=== PATIENT | female | born 1995 | race Caucasian/White ===

== ENCOUNTER 2024-01-18 16:51 | Emergency (ER) | payer OTHER, SELFPAY ==
[2024-01-18 16:53] VITALS: BP 118/75; PULSE 94; RESP 18; TEMP 36.1; O2SAT 97; BMI 34.5
[2024-01-18 18:52] VITALS: BP 108/70; PULSE 84; RESP 17; O2SAT 97
[2024-01-18] MEDS: Ondansetron 4 MG/2 ML Vial IV (19:51)
[2024-01-18] MEDS: Morphine 4 MG/ML Syringe IV (19:51)
[2024-01-18 20:00] VITALS: BP 108/73; PULSE 85; RESP 16; O2SAT 95
[2024-01-18] MEDS: Ketorolac 15 MG/ML Vial IV (21:03)
--- NOTE | 2024-01-18 21:16 | EDS_ITS ---
HPI History of Present Illness Chief Complaint: Other, Pain/Inj Detail of Chief Complaint: Atraumatic posterior neck pain after yawning Informant: patient Onset/Context/Timing Onset: Days Context: Sudden Onset Timing: Continuous Quality: Pain and spasm posterior neck near the occiput Location: Documented under quality Current Severity: Moderate Maximum Severity: Severe Worsened by: Movement Relieved by: Nothing. Patient is only taken Tylenol since she is Associated Symptoms Associated Symptoms: No associated symptoms Narrative Narrative: Patient is a 28-year-old G2, P1 female who is 28 weeks gestation who presents with posterior neck pain near the occiput that started after she yawned. She has limited range of motion. She denies paresthesia, anesthesia medics. She denies double vision blurred vision loss of vision. [place] ringing in ears or decreased hearing. She does complain of pain in the occiput area. She denies nausea or vomiting. She denies problems with coordination or balance. Prior similar symptoms: No Recent Illness/Hospitalization: No PFSH PFSH Medical History no medical history Allergy/AdvReac Type Severity Reaction Status Date / Time diphenhydramine (From Allergy Mild Other Verified 01/18/24 16:56 Benadryl) Social History (Updated 01/18/24 @ 21:[address] Marek Watson MD) household members: spouse and children Smoking Status: Former smoker ROS ROS ED Constitutional Constitutional ED: Denies chills, fever(s), subjective, sweats or weight loss Eyes Eyes: Denies blurry vision, change in vision or diplopia ENT ENT ED: Denies ear pain, rhinorrhea or sore throat Cardiovascular Cardiovascular: Denies chest pain Respiratory/Chest Respiratory/Chest: Denies cough or dyspnea Gastrointestinal Gastrointestinal: Denies nausea or vomiting Musculoskeletal Musculoskeletal: Reports neck pain; Denies arthralgias, back pain or myalgias Integumentary Denies rash Neurologic Neurologic: Reports headache(s); Denies paresthesias or weakness Endocrine Endocrinology: Denies cold intolerance or heat intolerance Allergic/Immunologic Allergic/Immunologic ED: Denies mouth swelling or tongue swelling EXAM Physical Exam Const Vital Signs: 01/18/24 16:53 01/18/24 18:52 01/18/24 19:54 Temperature 97 F L Temperature Source Temporal Pulse Rate 94 84 Respiratory Rate 18 17 Respiratory Effort Normal Respiratory Pattern Normal Blood Pressure 118/75 108/70 Blood Pressure Mean 89 82 Pulse Ox 97 97 Oxygen Delivery Method Room Air Room Air 01/18/24 20:00 Temperature Temperature Source Pulse Rate 85 Respiratory Rate 16 Respiratory Effort Respiratory Pattern Blood Pressure 108/73 Blood Pressure Mean 84 Pulse Ox 95 Oxygen Delivery Method Room Air Positive well nourished and well developed Constitutional Narrative: Vital signs are unremarkable. Patient appears uncomfortable. General Appearance ED: well developed; Negative for cyanotic, diaphoretic, NAD or pallor HEENT Reports moist mucous membranes HEENT Narrative: Head is atraumatic normocephalic. There is no trigger point. There is no skin or scalp lesions noted. Ears normal. TMs normal. Nares patent. Posterior pharynx is normal. Eyes PERRL and EOMs intact bilaterally General Eye ED: Negative for pale conjunctiva or scleral icterus Neck no lymphadenopathy, supple and no JVD Neck Narrative: Patient is able to flex and touch her chin to her chest. She able to rotate to the right and left but she complains of discomfort. She has pain with action. She also has increased pain with extension of her neck. There is pain outpatient posteriorly. There is no lesions noted. There is no warmth induration etc. There is no post occipital lymphadenopathy. Resp normal respiratory effort Cardio regular rate and regular rhythm Extremity normal to inspection Extremity Narrative: Axillary, median, radial and ulnar function intact. General Extremety ED: Negative for edema or tenderness General Extremity: Negative for edema Neuro oriented x3, CN's II-XII intact bilaterally and no sensory deficits noted Neuro Narrative: Bicep, tricep and brachialis is 1+ to 2+ and symmetric. There is no clonus or Babinski sign noted. Sensorium / Orientation: alert Motor Exam: strength 5/5 throughout Psych Mood & Affect: depressed Skin no rashes or lesions noted, no wounds and skin turgor normal General Skin Exam: elasticity normal; Negative for jaundice or pallor MDM MDM MDM Narrative Medical decision making narrative: Patient with muscular pain. This may represent torticollis. Doubt any cervical pathology. Because patient is she was initially treated with morphine. She had total resolution. She was asking to go prior to completing her discharge instructions she had severe pain. After talking with her and telling her this most likely represents torticollis she was willing to allow the nurse to give her another dose of pain medicine. She was reassessed for second time at 2117. Patient has improvement but not resolution. Patient was instructed apply ice 6-10 times a day and she was discharged home with appropriate home- going instructions. Discharge Plan Triage Chief Complaint: Other, Pain/Inj ED Provider: Marek Watson Dx/Rx/DC Orders Clinical Impression: Acute torticollis, Second trimester Instructions: Torticollis (Wry Neck) Primary Care Provider: Hospital,OR Referrals: Hospital,OR [Primary Care Provider] - 3-5 Days if not improving Activity Restrictions/Additional Instructions: 1. Apply ice to the back your neck 6-10 times a day Print Language: Tamazight Disposition Disposition: Home, Self Care
[2024-01-18 21:31] VITALS: BP 114/79; PULSE 61; RESP 18; TEMP 35.9; O2SAT 97
== END 2024-01-18 21:34 | disposition home or self-care (01) ==
PROVIDERS: Emergency Provider Emergency Medicine; Visit Provider Emergency Medicine
DX: O99.891 Other specified diseases and conditions complicating pregnancy (principal); M43.6 Torticollis; Z87.891 Personal history of nicotine dependence; Z3A.28 28 weeks gestation of pregnancy
CPT/HCPCS: 96374; 96375; 99282; A4216; J2405

== ENCOUNTER 2024-04-12 11:02 | Inpatient (IN) | payer OTHER, SELFPAY ==
[2024-04-12] VITALS (26 sets, daily range): BP systolic 82–154; BP diastolic 52–85; PULSE 48–97; RESP 10–19; TEMP 36.1–36.6; O2SAT 97–100; BMI 37.8
[2024-04-12 10:49] LABS: ROM Internal Control Test YES-OK TO RESULT pt. (Internal QC)
[2024-04-12 10:50] LABS: ROM Patient Test POSITIVE (Negative)
[2024-04-12 10:51] LABS: Record Kit Lot#, ROM+ K1660
[2024-04-12] MEDS: Lactated Ringers 1,000 ML 200 ML IV (11:50)
[2024-04-12] MEDS: Oxytocin 15 Units/NS 250ml 15 UNITS/250 ML IV.SOLN 2 UNITS IV (11:54)
[2024-04-12 12:58] LABS: Absolute Lymphocyte Count 2.12 X10^3/uL (0.83-4.51); Absolute Neutrophil Count 6.7 X10^3/uL (2.0-7.7); Basophil# 0.04 X10^3/uL; Basophil% 0.4 % (0-1); Eosinophil# 0.08 X10^3/uL; Eosinophils% 0.8 % (0-5); Hemoglobin 11.8 g/dL (12.0-15.0); Lymphocyte # 2.12 X10^3/ul (0.83-4.51); Lymphocyte % 22.4 % (19-41); Mean Corp Hgb Conc 32.8 g/dL (32-36); Mean Corpuscular Hgb 29.6 pg (27.0-32.0); Mean Corpuscular Volume 90.5 fL (81-99); Mean Platelet Vol. 11.2 fl (6.2-12.0); Monocyte# 0.48 X10^3/uL; Monocyte% 5.1 % (0-10); NRBC Flagged by Analyzer 0 % (0-5); Neutrophil # 6.69 X10^3/uL (2.7-7.7); Neutrophil % 70.8 % (47-70); Platelet Count 230 K/mm3 (150-450); RBC Distribution Width CV 12.9 % (11.6-14.6); RBC Distribution Width SD 42.1 fl (35.1-43.9); Red Blood Count 3.98 M/mm3 (4.2-5.4); White Blood Count 9.5 K/mm3 (4.4-11.0)
[2024-04-12 13:33] LABS: Syphilis Antibodies Non-reactive
--- NOTE | 2024-04-12 14:20 | PCM.HP.OB ---
HPI - General General Date of Admission: 04/12/24 HPI Narrative BRIGIDO PICKETT, is a 28 F @ 40.1 weeks who presents c/o SROM PFSH PFSH Medical History (Updated 04/12/24 @ 14:[address] Cindy Mcghee MD) Chlamydia infection affecting Depression Anxiety Allergy/AdvReac Type Severity Reaction Status Date / Time diphenhydramine (From Allergy Mild Other Verified 04/12/24 10:31 Benadryl) Surgical History (Updated 04/12/24 @ 12:31 by Toshia Paulino) History of surgery Social History (Updated 01/18/24 @ 21:[address] Marek Watson MD) household members: spouse and children Smoking Status: Former smoker History Elective abortions Hx Para 1 Spontaneous abortions Hx # Term Pregnancies Ectopic pregnancies Hx # Pregnancies Multiple births # of living children NST FHR Rate Baby A Baseline: 130 Variability:: Moderate Accelerations:: 15 x 15 Decelerations:: None NST Reactive:: Yes FHR Category:: Category I Uterine Activity:: irregular Vital Signs Vital Signs Vital Signs: 04/12/24 10:43 04/12/24 10:43 04/12/24 10:43 Temperature Temperature Source Tympanic Pulse Rate Respiratory Rate 15 Blood Pressure BP Systolic BP Diastolic Pulse Ox 98 04/12/24 10:43 04/12/24 10:44 04/12/24 10:44 Temperature 97.1 F L Temperature Source Pulse Rate 77 Respiratory Rate Blood Pressure 115/74 BP Systolic 115 BP Diastolic 74 Pulse Ox 04/12/24 12:58 04/12/24 12:58 04/12/24 13:00 Temperature Temperature Source Pulse Rate 73 Respiratory Rate Blood Pressure 154/85 H 126/60 H BP Systolic 154 126 BP Diastolic 85 60 Pulse Ox 04/12/24 13:00 04/12/24 13:00 04/12/24 13:00 Temperature Temperature Source Pulse Rate 71 67 Respiratory Rate 16 Blood Pressure BP Systolic BP Diastolic Pulse Ox 04/12/24 13:00 04/12/24 13:00 04/12/24 13:02 Temperature 97.4 F L Temperature Source Pulse Rate 68 Respiratory Rate Blood Pressure BP Systolic BP Diastolic Pulse Ox 99 04/12/24 13:02 04/12/24 13:07 04/12/24 13:07 Temperature Temperature Source Pulse Rate 71 Respiratory Rate Blood Pressure BP Systolic BP Diastolic Pulse Ox 99 98 04/12/24 13:47 04/12/24 13:47 04/12/24 13:47 Temperature Temperature Source Temporal Pulse Rate 70 Respiratory Rate 16 Blood Pressure BP Systolic BP Diastolic Pulse Ox 04/12/24 13:47 04/12/24 13:47 04/12/24 13:49 Temperature 97.6 F L Temperature Source Pulse Rate Respiratory Rate Blood Pressure 119/79 BP Systolic 119 BP Diastolic 79 Pulse Ox 100 04/12/24 13:49 04/12/24 13:49 Temperature Temperature Source Pulse Rate 58 L Respiratory Rate Blood Pressure BP Systolic BP Diastolic Pulse Ox 100 Weight Weight: 99.79 kg Body Mass Index (BMI) 37.8 Labs Labs Labs: Blood Type O POSITIVE Antibody Screen NEGATIVE Hct 36.0 % (37-47) L Hgb 11.8 g/dL (12.0-15.0) L Syphilis Total Ab Non-reactive Assessment & Plan (1) Obesity affecting : (2) Depression: PLAN: Plan [facility] FHR/TOCO Monitor VS SROM + , PPROM at 1cm After further review of patients chart and discussion on phone with patient- pt was counseled in office by Nathaniel dozier and Dr. Kaplan about Elective Primary CS and Bilateral Salpingectomy. Pt was being scheduled in [place] for this procedure. Pt would like to stop LABOR induction at this time and Proceed with Elective primary cs. She has been counseled by myself and previously by Dr. Kaplan regarding risks benefits and alternatives. Pt understands that salpingectomy is permanent and risk of regret was previously discussed. PRE OP abx - ANCEF. Plan for 4pm cs
[2024-04-12] MEDS: Lactated Ringers 1,000 ML 150 ML IV (15:00)
[2024-04-12] MEDS: Acetaminophen 500 MG Tablet 1000 MG PO (17:14)
[2024-04-12 17:37] LABS: Bedside Glucose 73 mg/dL (74-106)
[2024-04-12] MEDS: Sodium Citrate/Citric Acid 30 ML UDC PO (18:08)
[2024-04-12] MEDS: Cefazolin 2 GM in 0.9% Normal Saline (100mL Bag) 100 ML IV (18:20)
[2024-04-12] MEDS: Azithromycin 500 MG in Dextrose 5%-Water (250mL Bag) 250 ML 250 MG IV (18:40)
--- NOTE | 2024-04-12 19:23 | OP.PCM_ITS ---
Details Operative Information Date of Procedure: 04/12/24 Pre-Operative Diagnosis: Elective Primary c/s, desires sterilization, Obesity in , PPROM, 40 weeks gestation Post-Operative Diagnosis: same, live female infant Indications Narrative: pt was counseled in the office on separate occasions- had asked for primary cs and tubal sterilization. Pt on 04/11/24 had signed consent and was being set up for C/S at [facility]. Arrived at [facility] 04/12/24 with SROM- PPROM at 1cm , after discussion with patient and shared decision making patient was electing to proceed with primary c/s and bilateral salpingectomy. Classification: ABBY Procedure Type: low transverse (with bilateral salpingectomy ) computer graphic artist #1: Je Puente Type of Anesthesia: Spinal Antibiotic Given: Ancef 2 grams IV x1 and Zithromax 500 mg/5 mL X1 Drain: Gale[place] to straight drain Estimated Blood Loss: 600 Fluids Replaced: 650 Procedure Start Time: 18:44 Procedure Stop Time: 19:12 Time of Delivery: 18:47 Findings Description of Procedure: After informed consent was obtained the patient was taken the operating room she was given spinal anesthesia. She was then placed in the supine position. She was prepped and draped in the normal sterile fashion. Anesthesia was found to be adequate. At this time a Pfannenstiel skin incision was made with a knife was carried down to the underlying layer of the fascia. The fascial incision was then extended laterally using cooper traction. Attention was then turned to the superior aspect of the fascial edge was grasped with 2 straight Shannan clamps tented up and the rectus muscle dissected off sharply. Rectus muscles were then in the midline bluntly and peritoneum was entered bluntly. Gentle opposing traction was placed. At this time the vesicouterine peritoneum was identified. Scalpel was used to make a uterine incision in a low transverse fashion. The uterus was then entered bluntly gentle opposing traction was placed to extend this incision. 's head was brought to the uterine incision, loose nuchal x 1 noted and reduced, rest of was delivered atraumatically. was vigorous at delivery and delayed cord clamping performed. Cord was clamped and cut was handed to the waiting nursery team. The Placenta was removed from the uterus. The uterus was then removed from the abdominal cavity. The uterus was cleared of all clots and debris using a lap. At this time the uterine incision was reapproximated using #1 Vicryl in a running locked fashion. Hemostasis was appreciated. Posterior cul-de-sac was then cleared of all clots and debris. At this time the fallopian tubes were grasped and avascular with the [place]'s and the LigaSure was used to coagulate and ligate along the mesosalpinx to remove the tube in its entirety. Small paratubal cyst was noted on the left. Otherwise unremarkable. Uterus was placed back in the abdominal cavity. Gutters were cleared of all clots and debris. Uterine incision was reevaluated and noted to be of excellent hemostasis. At this time the peritoneum was grasped with Kellys reapproximated using #2 Vicryl suture in a running fashion. Fascia was then reapproximated using #1 PDS in a running fashion. Subcu layer was irrigated with NS, reapproximated with #2 0 plain gut suture in an interrupted fashion. Subcu layer was closed using 4-0 Viryl in a subcu fashion. Dry sterile dressing was applied. Instrument lap needle count correct ?2. Anticipated normal postoperative course. Presentation: Positive for Vertex Amniotic Membrane Rupture Type: Spontaneous Amniotic Fluid Description: Clear Placental Delivery Description: Expressed Placenta Disposition: [facility] Specimen(s) Sent to Pathology: Bilateral fallopian tubes Cord Vessel Description: 3 Vessels Cord Entanglement: Around neck x 1, loose Nuchal Cord Compression: Without compression Infant A Gender: Female (1 minute): 8 (5 minute): 9 Delayed Cord Clamping: Yes Complications Risks of Surgery Discussed w/Patient: Bleeding, Anesthesia Risks, Infection, Permanency, Failure Rate of 1 to 2%, Injury to surrounding structure(s) including bowel and bladder and Availability of other non-permanent control options Complications: none
--- NOTE | 2024-04-12 19:39 | FALS_PTH ---
PATIENT: BRIGIDO PICKETT LOC: [facility] U#:[id number] AGE/SX: 28/F ROOM: [facility] RE04/12/[address]: Dr. Cindy Mcghee, MDDOB: 1995 BED: 1 DIS: 04/14/2024 SPEC #: [id number] RECD: 04/12/24 19:47 STATUS: BRANDY LITO #: [id number] MADELEINE: 04/12/24 19:[address]: Cindy Mcghee DEPT: SURGICAL PATHOLOGY RECD BY: Jesenia Wheatley ENTERED: 04/13/24 10:19 SP TYPE: FALL TUBES NICHOLE DR: [facility] Tissues: Fallopian tube Procedures: Surgery Specimen Level II HEADER OPERATION: Tubal ligation PRE-OP DIAGNOSIS: Tubal during primary section TISSUE SUBMITTED: Bilateral fallopian tubes- suture on right MICROSCOPIC DIAGNOSIS Right fallopian tube, salpingectomy: No pathologic change. Left fallopian tube, salpingectomy: Benign paratubal cyst. AM: 04/14/2024 MICROSCOPIC DESCRIPTION Slides are reviewed. GROSS DESCRIPTION Received in fixative is one container labeled with the patient's name and designated bilateral fallopian tubes- suture on right. The specimen consists of bilateral fallopian tubes including fimbrial ends. Right fallopian tube measures 8.0cm in length and 0.7cm in diameter and left fallopian tube measures 6.0 cm in length and 0.7 cm in diameter. The left fallopian tube also shows a paratubal cyst measuring 2.0 x 1.5 x 1.5cm. The cyst is filled with clear fluid. Sections reveal unremarkable cut surfaces. Commercial Center Manager sections are submitted in two cassettes: 1- right fallopian tube, 2- left fallopian and paratubal cyst. / SJ: 04/13/2024 TC:5 CPT: 52915,34521
[2024-04-12] MEDS: Oxytocin 15 Units/NS 250ml 15 UNITS/250 ML IV.SOLN 83 UNITS IV (20:08)
[2024-04-12] MEDS: Lactated Ringers 1,000 ML 999 ML IV (20:38)
[2024-04-12] MEDS: Ketorolac 30 MG/ML Syringe IV (20:54)
[2024-04-12 21:13] LABS: Bedside Glucose 97 mg/dL (74-106)
[2024-04-12] MEDS: Lactated Ringers 1,000 ML 100 ML IV (21:57)
[2024-04-12 22:08] LABS: Pathology Specimen OB SEE PATHOLOGY REPORT
[2024-04-12] MEDS: Ondansetron 4 MG/2 ML Vial IV (22:33)
[2024-04-12 22:56] LABS: Absolute Lymphocyte Count 1.89 X10^3/uL (0.83-4.51); Absolute Neutrophil Count 9.8 X10^3/uL (2.0-7.7); Basophil# 0.07 X10^3/uL; Basophil% 0.6 % (0-1); Eosinophil# 0.07 X10^3/uL; Eosinophils% 0.6 % (0-5); Hematocrit 32.2 % (37-47); Hemoglobin 10.6 g/dL (12.0-15.0); Lymphocyte # 1.89 X10^3/ul (0.83-4.51); Mean Corp Hgb Conc 32.9 g/dL (32-36); Mean Corpuscular Hgb 30.1 pg (27.0-32.0); Mean Corpuscular Volume 91.5 fL (81-99); Mean Platelet Vol. 10.8 fl (6.2-12.0); Monocyte# 0.73 X10^3/uL; Monocyte% 5.8 % (0-10); NRBC Flagged by Analyzer 0 % (0-5); Neutrophil # 9.79 X10^3/uL (2.7-7.7); Neutrophil % 77.6 % (47-70); Platelet Count 207 K/mm3 (150-450); RBC Distribution Width CV 13.1 % (11.6-14.6); RBC Distribution Width SD 42.1 fl (35.1-43.9); Red Blood Count 3.52 M/mm3 (4.2-5.4); White Blood Count 12.6 K/mm3 (4.4-11.0)
[2024-04-13] VITALS (13 sets, daily range): BP systolic 91–108; BP diastolic 47–74; PULSE 45–88; RESP 16–24; TEMP 36–36.7; O2SAT 98–100
[2024-04-13] MEDS: Ketorolac 30 MG/ML Syringe IV ×3 (02:58→15:58)
--- NOTE | 2024-04-13 04:00 | NURSING ---
Dr Faye updated on patient vital signs. HR 40-50s consistently overnight with BP 91/61 patient resting in bed sleeping intermittently. Up to side of bed once denies feeling dizzy or lightheaded. Patient currently asymptomatic resting in bed. Order received to observe patient for 24 hours post duramorph instead of 12. Plan to call anesthesia if patient becomes symptomatic or change in vital signs.
[2024-04-13 05:33] LABS: Hematocrit 30.2 % (37-47); Mean Corp Hgb Conc 33.1 g/dL (32-36); Mean Corpuscular Hgb 30.3 pg (27.0-32.0); Mean Corpuscular Volume 91.5 fL (81-99); Mean Platelet Vol. 10.3 fl (6.2-12.0); Platelet Count 190 K/mm3 (150-450); RBC Distribution Width CV 13.1 % (11.6-14.6); RBC Distribution Width SD 42.4 fl (35.1-43.9); White Blood Count 10.7 K/mm3 (4.4-11.0)
[2024-04-13] MEDS: Acetaminophen 500 MG Tablet 1000 MG PO ×4 (06:05→23:52)
[2024-04-13 06:52] LABS: Bedside Glucose 86 mg/dL (74-106)
[2024-04-13] MEDS: Enoxaparin 40 MG/0.4 ML Syringe SC (08:10)
[2024-04-13] MEDS: 0.9% Saline Lock 10 ML Syringe IV ×3 (08:10→15:59)
[2024-04-13] MEDS: Senna/Docusate Sodium 1 Tablet PO (08:58)
--- NOTE | 2024-04-13 09:01 | PN.OBGYN_ITS ---
Subjective Subjective Patient seen at bedside. Denies headache, vision changes, SOB or CP. Ambulating and voiding without difficulty. Passing flatus. Lochia decreased. Objective Data Objective Data Vital Signs: Vital Signs Temp Pulse Resp BP Pulse Ox O2 Del Method 97.3 F L 52 L 16 91/61 100 Room Air 04/13/24 03:06 04/13/24 06:00 04/13/24 06:00 04/13/24 03:06 04/13/24 06:00 04/13/24 06:00 Oxygen Delivery Method Room Air Weight: 220 lb Body Mass Index (BMI) 37.8 Intake & Output: Intake and Output for Last 24 Hours 04/11/24 04/12/24 04/13/24 23:59 23:59 23:59 Intake Total 3211.53 / 3211.53 1000 / 1000 Output Total 1090 / 1090 800 / 800 Balance 2121.53 / 2121.53 200 / 200 Lab / Micro Data Attestation: I reviewed the patient's lab results. 04/13/24 05:25 Labs: Laboratory Results - last 24 hr 04/12/24 10:40: Vag Amniotic Fld Detect POSITIVE H 04/12/24 11:55: WBC 9.5, RBC 3.98 L, Hgb 11.8 L, Hct 36.0 L, MCV 90.5, MCH 29.6, MCHC 32.8, RDW Std Deviation 42.1, RDW Coeff of Maritza 12.9, Plt Count 230, MPV 11.2, Immature Gran % (Auto) 0.500, Neut % (Auto) 70.8 H, Lymph % (Auto) 22.4, [place] % (Auto) 5.1, Eos % (Auto) 0.8, Baso % (Auto) 0.4, Absolute Neuts (auto) 6.7, Absolute Lymphs (auto) 2.12, Nucleated RBC % 0, Syphilis Total Ab Non- reactive, Blood Type O POSITIVE, Antibody Screen NEGATIVE 04/12/24 17:17: POC Glucose 73 L 04/12/24 19:49: POC Glucose 97 04/12/24 22:46: WBC 12.6 H, RBC 3.52 L, Hgb 10.6 L, Hct 32.2 L, MCV 91.5, MCH 30.1, MCHC 32.9, RDW Std Deviation 42.1, RDW Coeff of [place]it[place] 13.1, Plt Count 207, MPV 10.8, Immature Gran % (Auto) 0.400, Neut % (Auto) 77.6 H, Lymph % (Auto) 15.0 L, [place] % (Auto) 5.8, Eos % (Auto) 0.6, Baso % (Auto) 0.6, Absolute Neuts (auto) 9.8 H, Absolute Lymphs (auto) 1.89, Nucleated RBC % 0 04/13/24 05:22: POC Glucose 86 04/13/24 05:25: WBC 10.7, RBC 3.30 L, Hgb 10.0 L, Hct 30.2 L, MCV 91.5, MCH 30.3, MCHC 33.1, RDW Std Deviation 42.4, RDW Coeff of [place]it[place] 13.1, Plt Count 190, MPV 10.3 ROS Eyes Eyes: Denies blurry vision, spots in vision or tunnel vision ENT HEENT: Denies dizziness or headache(s) Cardiovascular Cardiovascular: Reports systems reviewed and no addt'l complaints, except as documented, dizziness and dyspnea Respiratory/Chest Respiratory/Chest: Reports systems reviewed and no addt'l complaints, except as documented Gastrointestinal Gastrointestinal: Reports systems reviewed and no addt'l complaints, except as documented Genitourinary Genitourinary: Reports systems reviewed and no addt'l complaints, except as documented Neurologic Neurologic: Denies abnormal speech, dizziness, headache(s), syncope or vertigo Psychiatric Psychiatric: Reports systems reviewed and no addt'l complaints, except as documented Physical Exam Const alert and no apparent distress General Appearance: cooperative Orientation / Consciousness: awake, oriented to person and oriented to place Exam Limitations: no limitations HEENT normocephalic Eyes General Eye: normal appearance of both eyes Neck full ROM Chest Chest: symmetrical chest wall rise Resp normal respiratory effort, normal air movement and clear to auscultation bilaterally Auscultation: clear to auscultation bilaterally Cardio regular rate and regular rhythm GI normal to inspection, nondistended, normoactive bowel sounds Uterus Palpation: uterus fundus firm Extremity full ROM and no calf tenderness Skin no rashes or lesions noted Neuro oriented x3 Psych mental status grossly normal and activity/motor behavior normal Assessment & Plan (1) Obesity affecting : (2) Anxiety: (3) Depression: (4) Status post delivery: (5) Care and examination of lactating mother: PLAN: Plan POD 1 Repeat C/S Increase ambulation Pain control support Anticipate discharge home tomorrow
[2024-04-13] MEDS: Ibuprofen 600 MG Tablet PO (20:51)
[2024-04-14] MEDS: Ibuprofen 600 MG Tablet PO ×3 (03:28→15:19)
[2024-04-14 03:45] VITALS: BP 108/64; PULSE 65; RESP 16; TEMP 36.4; O2SAT 98
[2024-04-14] MEDS: SimETHICONE 80 MG Chewable Tablet PO (04:09)
[2024-04-14] MEDS: Acetaminophen 500 MG Tablet 1000 MG PO ×3 (06:31→18:27)
--- NOTE | 2024-04-14 07:23 | PCM.PN.CNM ---
Subjective Subjective Patient seen at bedside. Denies headache, vision changes, SOB or CP. Ambulating and voiding without difficulty. Passing flatus. Lochia decreased. infant with assistance. Objective Data Objective Data Vital Signs: Vital Signs Temp Pulse Resp BP Pulse Ox O2 Del Method 97.6 F L 65 16 108/64 98 Room Air 04/14/24 03:45 04/14/24 03:45 04/14/24 03:45 04/14/24 03:45 04/14/24 03:45 04/14/24 03:45 Oxygen Delivery Method Room Air Weight: 220 lb Body Mass Index (BMI) 37.8 Intake & Output: Intake and Output for Last 24 Hours 04/12/24 04/13/24 04/14/24 23:59 23:59 23:59 Intake Total 3211.53 / 3211.53 1000 / 1000 Output Total 1090 / 1090 1400 / 1400 Balance 2121.53 / 2121.53 -400 / -400 Lab / Micro Data Attestation: I reviewed the patient's lab results. 04/13/24 05:25 ROS Eyes Eyes: Denies blurry vision, spots in vision or tunnel vision ENT HEENT: Denies dizziness or headache(s) Cardiovascular Cardiovascular: Reports systems reviewed and no addt'l complaints, except as documented, dizziness and dyspnea Respiratory/Chest Respiratory/Chest: Reports systems reviewed and no addt'l complaints, except as documented Gastrointestinal Gastrointestinal: Reports systems reviewed and no addt'l complaints, except as documented Genitourinary Genitourinary: Reports systems reviewed and no addt'l complaints, except as documented Neurologic Neurologic: Denies abnormal speech, dizziness, headache(s), syncope or vertigo Psychiatric Psychiatric: Reports systems reviewed and no addt'l complaints, except as documented Physical Exam Const alert and no apparent distress General Appearance: cooperative Orientation / Consciousness: awake, oriented to person and oriented to place Exam Limitations: no limitations HEENT normocephalic Eyes General Eye: normal appearance of both eyes Neck full ROM Chest Chest: symmetrical chest wall rise Resp normal respiratory effort, normal air movement and clear to auscultation bilaterally Auscultation: clear to auscultation bilaterally Cardio regular rate and regular rhythm GI normal to inspection, nondistended, normoactive bowel sounds Uterus Palpation: uterus fundus firm Extremity full ROM and no calf tenderness Skin no rashes or lesions noted Neuro oriented x3 Psych mental status grossly normal and activity/motor behavior normal Assessment & Plan (1) Care and examination of lactating mother: (2) Status post delivery: (3) Anxiety: (4) Depression: PLAN: Plan POD 2 Primary C/S Pain control Increase ambulation support consultation Anticipate discharge home tomorrow
[2024-04-14 08:21] VITALS: BP 92/68; PULSE 65; RESP 16; TEMP 36.1; O2SAT 98
[2024-04-14] MEDS: Enoxaparin 40 MG/0.4 ML Syringe SC (08:27)
[2024-04-14] MEDS: Senna/Docusate Sodium 1 Tablet PO (09:40)
[2024-04-14 14:03] VITALS: BP 118/81; PULSE 63; RESP 16; TEMP 36.2; O2SAT 98
--- NOTE | 2024-04-14 14:03 | DS.PCM_ITS ---
Providers Date of Admission: 04/12/24 Primary Care Physician: [facility] Reason For Visit: PRIMARY Diagnosis Discharge Diagnosis (1) Care and examination of lactating mother: Status: Acute Code(s): Z39.1 - Encounter for care and examination of lactating mother (2) Status post delivery: Status: Acute Code(s): Z98.891 - History of uterine scar from previous surgery (3) Anxiety: Status: Acute Code(s): F41.9 - Anxiety disorder, unspecified (4) Depression: Status: Acute Code(s): F32.A - Depression, unspecified Medications at Discharge Home Medications acetaminophen 500 mg tablet (Acetaminophen Extra Strength) 1,000 mg (2 x 500 mg) PO Q6H PRN fever or pain 30 days #60 tabs 04/14/24 ferrous sulfate 325 mg (65 mg iron) tablet (FeroSul) 325 mg PO QODAY 30 days #15 tabs 04/14/24 ibuprofen 600 mg tablet 600 mg PO Q6H PRN Pain 30 days #60 TABLETS 04/14/24 oxycodone 5 mg tablet 5 mg PO Q8H PRN severe pain 7 days #10 TABLETS 04/14/24 Hospital Course Operations - (primary LTCS with bilateral salpingectomy) Procedures None Summary of Care Provided Minutes Spent on Discharge: 22 Hospital Course: 28-year-old 2 para 1 who presented on 04/12/2024 at 40 and 1 sevenths weeks gestation in labor who desired primary section and tubal sterilization. This was performed without difficulty. By postoperative day #2 she was ambulating, urinating tolerating regular diet without difficulty. was doing well and breast-feeding. Patient was discharged home with routine instructions and prescriptions and to follow-up in the office within 1 week and in 6 weeks or as needed. Weight / BMI Weight Weight: 99.79 kg Body Mass Index (BMI) 37.8 ABG / Lab / Microbiology Data 04/13/24 05:25 D/C Instructions Discharge Diet: No restrictions May resume sexual activity in: 4-6 weeks Lifting Restrictions: 20 pounds Additional Activity Instructions: Nothing in the vagina for 4-6 weeks. You may return to work/school in 6 weeks. Call your doctor if your incision/area has: Continuous Slow Oozing, Sudden Increased Bleeding, Increased Pain/ Swelling, Increased Redness and Foul Smelling Discharge Call your doctor if you observe: Fever of 101 or Higher and Using more than 1 pad per hour (for 2 hours) Suture Line Care: Avoid Pulling/Pushing and Avoid Pinching/Bending Cleanse incision/area with: Keep Dressing Clean & Dry Please Follow Up With: Cindy Mcghee MD When: Call to make an appointment for an incision check in 1-2 [phone]. You will need a post check in 6 weeks. Meaningful Use Info Meaningful Use Meaningful Use Diagnoses (Choose all that apply): None applicable Ischemic Stroke Statin Dosing Therapy Reference: STATIN DOSE THERAPY REFERENCE: * Patients > 75 years receive moderate or high dose statin therapy. * Patients 75 years or YOUNGER should receive HIGH intensity statin dose unless contraindicated. You will be required to document reason for non-treatment if statin daily dose does not meet guidelines. HIGH DOSE STATIN THERAPY DAILY Atorvastatin > than or = to 40 mg Rosuvastatin > than or = to 20 mg Amlodipine + Atorvastatin > than or = to 2.5/40 mg Ezetimibe + Simvastatin 10/80 mg Simvastatin 80mg Discharge Plan Admission Admit Date/Time: 04/12/24 11:02 Primary Reason for Your Visit: and tubal Attending Provider: Cindy Mcghee [facility] Care Provider: [facility] Discharge Orders/Prescriptions Prescriptions: New acetaminophen [Acetaminophen Extra Strength] 500 mg tablet 1,000 mg PO Q6H PRN (Reason: fever or pain) 30 Days Qty: 60 1RF ibuprofen 600 mg tablet 600 mg PO Q6H PRN (Reason: Pain) 30 Days Qty: 60 1RF oxycodone 5 mg tablet 5 mg PO Q8H PRN (Reason: severe pain) 7 Days Qty: 10 0RF ferrous sulfate [FeroSul] 325 mg (65 mg iron) tablet 325 mg PO QODAY 30 Days Qty: 15 0RF Referrals / Follow Up: [facility] [Primary Care Provider] - Disposition Disposition (needs filled in before D/C Order can be placed): Home, Self Care
--- NOTE | 2024-04-14 15:04 | CASEMGMT ---
Social Work Assessment Labor and Delivery Unit Patient Address: [id number] [id number] Date of Referral: 04/12/2024 Time of Referral: 9:00am Referred By: Dr. Mcghee Date of Intervention: 04/14/2024 Time of Intervention: 1100 Reason for Referral: SW completed chart review and acknowledges social work consult due to maternal mental health. SW presented and introduced self to mother of baby (OCTAVIO Cole). SW completed psychososcial assessment and asked MOB to to complete [place] Depression Scale. History obtained from: MOB, medical record Household composition: MOB reports to living with boyfriend (FOB) and son. MOB denies any concerns with housing. Patient's parent/guardian status: OCTAVIO states that her and father of baby (CHAVEZ Tyler) have been together for 4-5 years. This is second child for both MOB and FOB, no other children from previous relationships. MOB states that their other child is 3 year old boy. Medical History: OCTAVIO is 28 year old female who is 2, para 1 now 2 following scheduled . OCTAVIO received routine care during pregnacy with [facility]. OCTAVIO delivered baby on 04/12/2024 at 40 weeks gestation. Baby girl, Chioma, was born weighing 7 lbs 12 oz. with Apgars of 8 and 9 at one and five minutes of life. OCTAVIO is breast feeding and reports using lacatation consult to help with same. Baby will be followed by Dr. Shearer for pediatrics. Educational Status: OCTAVIO graduated high school and enlisted in the [place] [employer], attended some college classes but no degree. Intents to continue college education. FOB graduated high school. No concerns with reading, learning or comprehension. Financial Status: OCTAVIO is not employed at this time. Does have plans to pursue a job after the New Year. FOB works as a foundry metallurgist and is the primary financial support for the family. MOB did discuss being open to additional resources if available, given information provided for WIC. Infant Supplies: MOB reports to having all necessary baby supplies including car seat, diapers, wipes, clothes and a safe sleep place. Childcare/Caregiver(s) MOB will be the primary career development facilitator to baby with support from FOB. MOB states she also has grandparents on both sides, FOB sisters, and her aunt that are part of her support system. Transportation: MOB has drivers license and reliable means of transportation. No barries at this time. Programs/Agencies Involved: OCTAVIO has [place] benefits and insurance thru FOB. Discussed additional resources and information provided for WIC. Children Services/Legal Issues: No history of children services involvement, no issues or concerns warrenting referrals to be made at this time. Behavioral Health Issues: Mental Health History: MOB reports to having depression and anxiety in the past, previosly being prescibed Lexapro. MOB reports no recent concerns but is able to recognize signs and symptoms. States that she has a good support system and feels she will be open to talking should she need help. MOB also reports to utilizing relationship counseling for her and her boyfriend to promote healthly communication and coping strategies. [place] Depression Scale administered due to past history, MOB scored a 2, reviewed talking with care providers should she feel a decline in mood. MOB receptive to discussion and utlizing additional resources if needed. Substance Use History: MOB denies substance use prior to or during pregancy. Family History: MOB denies any family history of substance abuse. Maternal and Drug Screens. No drug screens observed in chart review. Family/Social Stressors: MOB denies any family or social stressors at this time. Support Systems: .OCTAVIO identifies FOB as biggest support, also her mother, FOBs mother and siblings. Depression and Anxiety/Shaken Baby/Safe Sleeping: . SW educated MOB on signs and symptoms of baby blues and mood and anxiety disorders to be mindful of during this period. SW provides literature for MOB to review regarding these topics. MOB was receptive of information provided. SW educated MOB on shaken baby prevention and ABCs of safe sleep. MOB expressed understanding. ASSESSMENT: MOB and baby admitted post . Upon entering room, MOB and baby were in recliner, baby was resting comfortably. FOB not in room at time, had gone to get MOB breakfast. MOB looking forward to discharge, states she has good supports in place.. MOB was insightful regarding her past and current mental health needs and resouces available should they be needed. MOB talkative and receptive to sw involvement and support. PLAN: MOB and baby to be discharged when medially ready. MOB was provided with literature regarding Help Me Grow, safe sleep, shaken baby prevention, [facility] resource list, and educaiton regarding mood and anxiety disorders to be aware of. Shannon Art, VENEER DRIER FEEDER, ANALYTICAL CLERK No other services requested or indicated.
[2024-04-14] MEDS: FLU VACC 2024-25(6MOS UP)/PF 45 MCG/0.5 ML SYRINGE IM (15:20)
[2024-04-14 19:22] VITALS: RESP 14
== END 2024-04-14 19:00 | disposition home or self-care (01) | DRG 785 ==
LOC: WPOUT 11:08 → WP 11:09
PROVIDERS: Admitting Provider Obstetrics & Gynecology; Referring Provider Obstetrics & Gynecology; Visit Provider Obstetrics & Gynecology
DX: O99.214 Obesity complicating childbirth (principal); N83.8 Other noninflammatory disorders of ovary, fallopian tube and broad ligament; O34.83 Maternal care for other abnormalities of pelvic organs, third trimester; O42.92 Full-term premature rupture of membranes, unspecified as to length of time between rupture and onset of labor; O69.81X0 Labor and delivery complicated by cord around neck, without compression, not applicable or unspecified; Z37.0 Single live birth; Z3A.40 40 weeks gestation of pregnancy; Z87.891 Personal history of nicotine dependence; Z23 Encounter for immunization
CPT/HCPCS: 59050; 82962; 84112; 85025; 85027; 86780; 86850; 86900; 86901; 88302; 90656; 99221; J7120; A4216; G0378; J2405